=== PATIENT | female | born 1960 | race Hispanic/Latino ===

== ENCOUNTER 2019-11-01 08:37 | Emergency (ER) | payer OTHER ==
[2019-11-01] MEDS ORDERED: PREDNISONE 20 MG TABLET ONE (08:59)
== END 2019-11-01 09:11 | disposition home or self-care (01) ==
LOC: EDH 08:37
DX: T78.40XA Allergy, unspecified, initial encounter (principal); Z90.49 Acquired absence of other specified parts of digestive tract; Z98.890 Other specified postprocedural states; X58.XXXA Exposure to other specified factors, initial encounter